=== PATIENT | female | born 1950 | race Caucasian/White ===

== ENCOUNTER 2017-01-01 05:33 | Day surgery (SDC) | payer MEDICARE, OTHER ==
[~2017-01-01] VITALS: Ht 160 cm; Wt 70.6 kg
[2017-01-01] VITALS (11 sets, daily range): BP systolic 124–151; BP diastolic 48–84; PULSE 74–81; RESP 7–18; O2SAT 88–98
[~2017-01-01 05:33] MED LIST: AMIT10TA6 PO; OXYC1TAB24 PO
[2017-01-01] MEDS ORDERED: MetoCLOpramide 5 mg/mL 2 mL Inj ONE (05:34)
[2017-01-01] MEDS ORDERED: Dexamethasone 4 mg/mL Inj ONE (05:34)
[2017-01-01] MEDS ORDERED: Ondansetron 2 mg/mL 2 mL Inj ONE (05:34)
[2017-01-01] MEDS ORDERED: fentaNYL-PF 50 mCg/mL 2 mL Inj ONE (05:34)
[2017-01-01] MEDS ORDERED: Propofol 10,000 mCg/mL 20 mL Inj ONE (05:34)
[2017-01-01] MEDS ORDERED: Labetalol 5 mg/mL 20 mL Inj ONE (05:34)
[2017-01-01] MEDS: Lactated Ringer's 1,000 ML IV SCH ×2 (05:38→08:18)
[2017-01-01] MEDS ORDERED: CeFAZolin Inj 2 GM in IV Premix 1 EACH IV ONE (06:00)
[2017-01-01] MEDS ORDERED: Lactated Ringer's 1,000 ML IV SCH (07:53)
[2017-01-01] MEDS ORDERED: Lactated Ringer's 500 ML IV PRN (07:53)
--- NOTE | 2017-01-01 07:53 | PCM.HPANE ---
Patient Data Date of Service: Jan 01, 2017 (0715) Surgeon Admitting Provider: Attending Provider:Cas Munoz MD Primary Care Physician:Other,Physician Other Provider:Gabriel Caldwell Anesthesia Reason for Visit Right Commuted Distal Radial Fracture Ht/WT & BMI Height (Feet): 5 Height (Inches): 3.00 Weight (Kilograms): 70.6 Body Mass Index 27.00 Allergies Coded Allergies: No Known Allergies (Unverified , 12/29/16) Past Anesthesia History Anesthesia History: Denies:: Fam Anesthesia Reaction, Fam Malignant Hypertherm Diabetes History Hx Diabetes?: No MRSA MRSA: No Medications Home Meds Incl Beta Carol: No Reported Medications oxyCODONE-Acetaminophen 5-325 mg 1 Each Tablet1 Tab PO Q6H PRN For Pain Ref 0 12/29/16 Amitriptyline 10 Mg [id number] Mg PO HS Ref 0 12/29/16 History History of ENT Problems?: No Hx of Heart Problems?: No Cardiovascular History: Denies:: Heart Murmur Hypertension Hx of Respiratory Problem?: No Respiratory History: Denies:: Use of C-PAP Machine Hx Neurologic Problems?: No Hx of GI Problems?: No Hx of Problems?: No Female Hx: Denies:: Currently Skin History: Denies:: History Skin Disorders? Pressure Ulcers Hx Musculoskeletal Problems?: Yes Musculoskeletal History: Positive for:: Musculoskeletal Trauma (RT DISTAL RADIUS FX=CURRENT PROBLEM RT ULNAR STYLOID FX REQ. NO RPR) Hx of Psycho/Social Problems?: No Hx Surgeries?: No Hx Any Other Health Problems?: No Other History: Denies:: Cancer Endocrine Disease Hospitalization Thyroid Disease Hx Diabetes: No Have You Smoked inLast 12 mo: No Stop/Bang S-Snoring: Do You Snore Loudly: No T-Tired: feel tired, fatigued: No O-Obsered: Observed not breath: No P-Blood Pressure: treated: No B- Body Mass Index > 35 kg/m2: No A- Age over 50: Yes N- Neck Large Circumference: No G- Gender Male: No LIZZIE Total Score: 1 Risk Assessment Category Category 1A: Patient has history of documented sleep apnea, and HAS NOT received any narcotic, sedative or anesthesia administration during this stay. Category 1B: Patient has history of documented sleep apnea, and HAS received any narcotic , sedative or anesthesia administration during this stay Category 2: Patient has SUSPECTED Obstructive Sleep Apnea, and HAS received any narcotic , sedative or anesthesia administration during this stay. Category 3: Patient has SUSPECTED Obstructive Sleep Apnea and HAS NOT received narcotic, sedative or anesthesia administration during this stay. Category 4: Outpatient in Procedural Areas with known sleep apnea or who screen positive for High Risk via the STOP/BANG questionnaire. Exam Exam Vital Signs Vital Signs Date Time Temp Pulse Resp B/P Pulse Ox O2 Delivery O2 Flow Rate FiO2 01/01/17 05:54 35.6 77 18 143/79 96 Room Air General Appearance: Alert, Oriented X3, Cooperative, No Acute Distress HEENT/AIRWAY: MP 2 Lungs: Clear to Auscultation Heart: Exam Unremarkable Meds/Labs/Diagnostics Admission Meds Current Medications Lactated Ringer's (Lr) 1,000 ml @ 120 mls/hr Q8H20M IV Last administered on 05:38; Start 01/01/17 at 05:00; Stop 01/01/17 at 13:19 Scopolamine (Transderm-Scop Patch) 1.5 mg ONCE ONCE TOPICAL Last administered on 01/01/17 07:34; Start 01/01/17 at 07:30; Stop 01/01/17 at 07:36; Status DC Plan Impression Patient chart reviewed, patient interviewed and anesthestic plan with risks, benefits, and alternatives discussed, and informed consent obtained. NPO Status: 10PM ASA Physical Status: ASA1 Plus Emergency Anesthetic Plan: GA Bene/Risks/Altern/Consents: Yes HP Complete Prior to Induction: Yes Conrad Kurtz MD Jan 01, 2017 07:53
[2017-01-01] MEDS ORDERED: MetoCLOpramide 5 mg/mL 2 mL Inj IVPUSH PRN (07:55)
[2017-01-01] MEDS ORDERED: Phenylephrine 10,000 mCg/mL Inj IVPUSH PRN (07:55)
[2017-01-01] MEDS ORDERED: Dexamethasone 4 mg/mL Inj IVPUSH PRN (07:55)
[2017-01-01] MEDS ORDERED: Ondansetron 2 mg/mL 2 mL Inj IVPUSH PRN (07:55)
[2017-01-01] MEDS ORDERED: EPHEDrine Sulfate 50 mg/mL Inj IVPUSH PRN (07:55)
[2017-01-01] MEDS ORDERED: HYDROmorphone 1 mg/mL Inj IVPUSH PRN (07:55)
[2017-01-01] MEDS ORDERED: Bupivacaine-MPF 0.5% 30 mL Inj INFILTRATE ONE (08:17)
[2017-01-01] MEDS ORDERED: oxyCODONE-Acetamin 5-325 mg Tablet PO PRN (10:25)
[2017-01-01] MEDS: fentaNYL-PF 50 mCg/mL 2 mL Inj IVPUSH PRN ×2 (10:48→11:04)
--- NOTE | 2017-01-01 11:28 | PCM.ANEP2 ---
Post Anesthesia Evaluation ASA/CMS Post Anesthesia VS in Patient's Normal Range?: Yes Resp Stable; Airway Patent?: Yes CV Function & Hydration Stable: Yes Mental Status Recovered?: Yes Pain control Satisfactory?: Yes N/V Control Satisfactory?: Yes Conrad Kurtz MD Jan 01, 2017 11:28
--- NOTE | 2017-01-01 11:28 | PCM.ANEP1 ---
Post Anesthesia Phase 1 PACU Phase 1 Assessment Date of Service: Jan 01, 2017 (0715) Vital Signs Vital Signs Date Time Temp Pulse Resp B/P Pulse Ox O2 Delivery O2 Flow Rate FiO2 01/01/17 11:21 36.9 75 16 125/70 98 Nasal Cannula 2 01/01/17 11:15 81 15 128/73 97 Nasal Cannula 4 01/01/17 11:05 77 7 124/62 92 Nasal Cannula 2 01/01/17 10:51 74 13 145/75 91 Nasal Cannula 2 01/01/17 10:40 77 11 145/78 95 Nasal Cannula 2 01/01/17 10:35 80 11 143/84 93 Nasal Cannula 2 01/01/17 10:30 79 12 143/71 95 Nasal Cannula 2 01/01/17 10:25 76 11 151/71 94 Nasal Cannula 4 01/01/17 10:22 36.4 75 11 142/76 88 Room Air 01/01/17 05:54 35.6 77 18 143/79 96 Room Air Anesthetic Administered: GA Level of Alertness: Sleepy, easy to arouse TRUONG's with Equal Strength: Yes Pain: No Nausea or Vomiting: No Oxygen Delivery: Nasal Cannula Lungs: Clear to Auscultation Dermatome Level: Full Sensation Conrad Kurtz MD Jan 01, 2017 11:28
--- NOTE | 2017-01-01 13:30 | DRSVH ---
PROCEDURE: X-RAY RIGHT WRIST COMPLETE, MINIMUM THREE VIEWS ([id number]) INDICATIONS: post operative wrist TECHNIQUE: 3 views of the wrist were acquired. COMPARISON: [facility], CR, XR WRIST 3VW RT, 01/01/2017, 7:12. FINDINGS: Bones: Improved alignment status post internal fixation of distal right metadiaphyseal fracture. Fix ation plate and associated screws in expected position. No change in ulnar styloid fracture. Osteoar thritic changes redemonstrated. Scaphoid view: Not requested. Soft tissues: No suspicious soft tissue calcifications. IMPRESSION: Improved lung status post ORIF. Dictated by: Fidel MEJIA Interpreted: Farideh Jimenez MD on 01/01/2017 at 13:29 Transcribed by: HYACINTH on 01/01/2017 at 13:30 Approved by: Farideh Jmienez MD, PhD on 01/01/2017 at 17:09
--- NOTE | 2017-01-02 07:26 | OP ---
[address] [address] OPERATIVE REPORT PATIENT: ONUR BOWMAN : 1950 MR#: [id number] ADMIT: 01/01/2017 JOB ID: [id number] DATE OF SURGERY: 01/01/2017 PREOPERATIVE DIAGNOSIS(ES): Comminuted right distal radial intra-articular fracture with three or more fragments. ICD 10 code S52.531A, as well ulnar styloid fracture. POSTOPERATIVE DIAGNOSIS(ES): Comminuted right distal radial intra-articular fracture with three or more fragments. ICD 10 code S52.531A, as well ulnar styloid fracture. PROCEDURE: Open reduction internal fixation of comminuted right distal radial intra-articular fracture with three or more fragments. CPT code 91503. SURGEON: Cas Munoz MD. SENIOR ACCOUNT DIRECTOR: Mark Dang PA-C. Mark Dang was an integral portion of the procedure helping hold the hand and position the arm with retractors in traction for reduction of the fracture. ANESTHESIA: General. ESTIMATED BLOOD LOSS: Less than 10 mL. DRAINS: None. COMPLICATIONS: None. COUNTS: Sponge and needle count correct. No complications. IMPLANTS UTILIZED: Synthes 2.4 mm locked distal radial volar variable angle plate. INDICATIONS: This is a 66-year-old female who fell sustaining a comminuted left distal radial intra-articular fracture and ulnar styloid fracture. She was treated at the [facility] with closed reduction but still had residual displacement of the fracture. DESCRIPTION OF PROCEDURE: Under adequate general anesthetic, a well-padded tourniquet was applied to the right upper extremity. The right arm was prepped and draped in sterile fashion. After appropriate time out was called The arm was elevated, exsanguinated and tourniquet inflated to 250 mmHg. A curvilinear incision was fashioned just radial to the flexor carpi radialis tendon. Care was taken to protect the radial artery. The palmar fascia was incised. This was incised just radial to the flexor carpi radialis. The flexor pollicis longus tendon and muscle were retracted in an ulnar fashion along with the median nerve and the radial artery was retracted radially. The pronator quadratus was identified and was elevated off the distal radius in an L shaped fashion with the horizontal portion of the incision directed distally. Care was taken to protect the volar carpal ligaments. The fracture was identified. A Boncarbo elevator was placed in the fracture and then the fracture was reduced, also utilizing Hohmann tractor as well of the lamina animal husbandry technician. The displaced portion of the distal radius that was proximal was able to be reduced and the fracture was then subsequently temporarily stabilized with the two 0.4 K-wires, one directed from a proximal radial direction on the shaft to a distal ulnar direction. The second K-wire was introduced over the radial styloid percutaneously and directed from a distal radial to proximal ulnar direction. Image intensification confirmed good position of the K-wires. A narrow Synthes 2.4 mm variable angle locked plate was then temporarily transfixed to the distal radius with K-wires. Image intensification confirmed good position of the plate. One drill hole was placed in the oblong hole utilizing a 2.7 mm cortical screw and the plate was compressed to the bone. Attention was next turned to the distal interlock screws. Two of the most proximal ulnar screws were drilled, measured and nonlocking screws were utilized initially to compress the plate to the bone and they were to be changed at the end of the case to two locking screws. Additional screws were placed, were drilled and filled with appropriate locking screws distally. Attention was next turned to the remaining two proximal screws in the shaft. The next screw was drilled and filled with a nonlocking screw and the most proximal screw was drilled and filled with a 2.4 mm locking screw. The remaining screw holes distally were drilled and filled with locking screws and the previous K-wires were removed. The two most initial screws distally that were placed in nonlocking mode to compress the plate to the bone were then changed to locking screws once the plate had been compressed to the bone. Image intensification confirmed good position of the screws on AP, lateral and oblique views. Any temporary K-wires were removed. The wound was irrigated with antibiotic solution. The pronator quadratus was repaired over the plate utilizing interrupted sutures of 3-0 Vicryl. The 0.50% plain Marcaine was placed in the wound. Tourniquet was released. Minimal hemostasis required. Subcutaneous layer closed with interrupted sutures of 4-0 Monocryl and skin was reapproximated with running subcuticular suture of 4-0 Monocryl. Mastisol and Steri-Strips were applied. Xeroform and dry sterile dressings were applied. The patient was placed in a well-padded short-arm fiberglass splint. The patient was taken to recovery in stable condition. Sponge and needle count correct. No complications. PLAN: The patient will be seen back in the office in followup in two weeks with one of the PAs. Sutures will be clipped flush with the skin. She should then be placed in a short arm cast with the wrist in neutral. Her bone was rather osteoporotic and I feel that she would need an additional two weeks of short arm cast immobilization. I should then be able to see the patient at the four week interval postoperatively. Hopefully at that time we will be able to begin range of motion at the wrist. The patient has been encouraged to range of motion to the fingers. CC: [facility] CC: Arsen Calvert
== END 2017-01-01 23:59 | disposition home or self-care (01) ==
LOC: SAS 05:33
PROVIDERS: ATTEND Orthopaedic Surgery
DX: S52.571A Other intraarticular fracture of lower end of right radius, initial encounter for closed fracture (principal); S52.611A Displaced fracture of right ulna styloid process, initial encounter for closed fracture; W00.0XXA Fall on same level due to ice and snow, initial encounter; Y93.9 Activity, unspecified; Y92.9 Unspecified place or not applicable; Y99.8 Other external cause status; Z87.891 Personal history of nicotine dependence
CPT/HCPCS: 25609; 73110; C1713; J0690; J1100; J1170; J1885; J2405; J2765; J3010; J7120